=== PATIENT | male | born 1960 | race Caucasian/White ===

== ENCOUNTER 2016-07-03 18:32 | Emergency (ER) | payer BC, OTHER ==
[2016-07-03] MEDS ORDERED: LIDOCAINE VIS-MYLANTA 30 ML UD PO ONE (18:49)
--- NOTE | 2016-07-03 18:52 | ED.PDOC ---
History of Present Illness - General Source: patient Exam Limitations: no limitations - History of Present Illness Initial Comments: The patient is a 55-year-old male presenting to the emergency room secondary to abdominal pain that started approximately 3 hours prior to arrival. The pain seems to be mostly on the right side when he describes it however he does have some discomfort palpation in the epigastric area as well. No definite rebound or peritoneal signs at this time. He was not straining or doing anything active when the pain started. It started fairly acutely and was actually much stronger than it is now. He did have some severe nausea and was doubled over in pain for a short period of time. It is hurting at a 3 out of 10 currently. He has had a history of kidney stones in the past. No previous abdominal surgeries. Timing/Duration: 1-3 hours Severity: moderate Improving Factors: nothing Worsening Factors: nothing Associated Symptoms: loss of appetite, malaise, nausea/vomiting <Sam Hall - Last Filed: 07/03/16 18:49> <Beatrice Venegas - Last Filed: 07/03/16 20:15> - General Chief Complaint: Abdominal Pain Time Seen by Provider: 07/03/16 18:42 - History of Present Illness Allergies/Adverse Reactions: Allergies NO KNOWN ALLERGY Allergy (Verified 07/03/16 18:46) Review of Systems - Review of Systems Constitutional: States: no symptoms reported EENTM: States: no symptoms reported Respiratory: States: no symptoms reported Cardiology: States: no symptoms reported Gastrointestinal/Abdominal: States: see HPI Genitourinary: States: no symptoms reported Musculoskeletal: States: no symptoms reported, back pain - with the associated abdominal pain Skin: States: no symptoms reported Neurological: States: no symptoms reported All other Systems: No Change from Baseline <Sam Hall - Last Filed: 07/03/16 18:49> Past Medical History (General) - Patient Medical History Hx of COPD: No Hx Cardiac Disorders: No Hx Pacemaker: No Hx Diabetes: No Surgical History: other <Sam Hall - Last Filed: 07/03/16 18:49> Family Medical History - Family History Mother Family History: Unknown <Sam Hall - Last Filed: 07/03/16 18:49> Physical Exam - Physical Exam General Appearance: Alert, Anxious, No apparent distress Eye Exam: bilateral normal Ears, Nose, Throat: normal ENT inspection, normal pharynx Neck: full range of motion, normal inspection Respiratory: lungs clear, normal breath sounds, no respiratory distress, no accessory muscle use Cardiovascular/Chest: normal peripheral pulses, regular rate, rhythm, no edema Peripheral Pulses: radial,right: 2+, radial,left: 2+, dorsalis pedis,right: 2+, dorsalis pedis,left: 2+ Gastrointestinal/Abdominal: other - see history of present illness Rectal Exam: deferred Back Exam: normal inspection, no vertebral tenderness Extremity: normal range of motion, non-tender, normal inspection, no pedal edema , no calf tenderness, normal capillary refill Neurologic: alert, normal mood/affect, oriented x 3 Skin Exam: normal color Comments: Vital Signs - 24 hr 07/03/16 18:40 Temperature 96.6 F L Pulse Rate [ 77 RIGHT BRACHIAL] Respiratory 20 Rate O2 Sat by Pulse 98 Oximetry <Sam Hall - Last Filed: 07/03/16 18:49> Progress - Progress Progress: 07/03/16 20:09 Because Patient has no elevated WBC count and no fever and the x-ray indicates proximal colon distension due to stool, I believe Patient's pain is due to constipation. I have discussed this with Patient and offered to do a CT scan if he prefers to confirm the diagnosis, however Patient declines. I have instructed him to return immediately for any continuation or worsening of pain, fever, or nausea/vomiting and he voices his understanding. I have recommended a stool softener, increased fluids and increased movement. If this does not help, he may get a Fleet's enema OTC to see if that helps. - Results/Orders Results/Orders: 07/03/16 18:40 Temperature 96.6 F L Pulse Rate [ 77 RIGHT BRACHIAL] Respiratory 20 Rate O2 Sat by Pulse 98 Oximetry 07/03/16 19:00 HYDROmorphone HCL INJ [Dilaudid INJ] 1 mg IV ONCE Laboratory Results WBC 9.6 K/mm3 (4.8-10.8) 07/03/16 18:45 RBC 5.60 M/mm3 (4.70-6.10) 07/03/16 18:45 Hgb 16.9 gm/dL (14.0-18.0) 07/03/16 18:45 Hct 48.0 % (42.0-52.0) 07/03/16 18:45 MCV 85.8 fl (80.0-94.0) 07/03/16 18:45 MCH 30.2 pg (27.0-31.0) 07/03/16 18:45 MCHC 35.3 g/dL (33.0-37.0) 07/03/16 18:45 RDW 14.0 % (11.5-14.5) 07/03/16 18:45 Plt Count 172 K/mm3 (130-400) 07/03/16 18:45 MPV 8.3 fl (7.40-10.4) 07/03/16 18:45 Absolute Neuts (auto) 7.30 K/uL (1.8-6.8) H 07/03/16 18:45 Absolute Lymphs (auto) 1.60 K/uL (1.0-3.4) 07/03/16 18:45 Absolute Monos (auto) 0.60 K/uL (0.2-0.8) 07/03/16 18:45 Absolute Eos (auto) 0.10 K/uL (0.0-0.4) 07/03/16 18:45 Absolute Basos (auto) 0.10 K/uL (0.0-0.1) 07/03/16 18:45 Neutrophils % 75.9 % (42.0-78.0) 07/03/16 18:45 Lymphocytes % 16.8 % (20.0-50.0) L 07/03/16 18:45 Monocytes % 5.8 % (2.0-9.0) 07/03/16 18:45 Eosinophils % 0.8 % (1.0-5.0) L 07/03/16 18:45 Basophils % 0.7 % (0.0-2.0) 07/03/16 18:45 PT 10.9 SECONDS (9.4-12.5) 07/03/16 18:45 INR 0.960 07/03/16 18:45 PTT (SP) 30.5 SECONDS (25.1-36.5) 07/03/16 18:45 Sodium 136 mmol/L (135-145) 07/03/16 18:45 Potassium 4.0 mmol/L (3.6-5.0) 07/03/16 18:45 Chloride 102 mmol/L (101-111) 07/03/16 18:45 Carbon Dioxide 28 mmol/L (21-31) 07/03/16 18:45 Anion Gap 10.0 (12-18) L 07/03/16 18:45 BUN 22 mg/dL (7-18) H 07/03/16 18:45 Creatinine 0.77 mg/dL (0.6-1.3) 07/03/16 18:45 BUN/Creatinine Ratio 28.6 (10-20) H 07/03/16 18:45 Random Glucose 99 mg/dL (70-105) 07/03/16 18:45 Serum Osmolality 275.3 mOsm/L (275-295) 07/03/16 18:45 Calcium 9.2 mg/dL (8.4-10.2) 07/03/16 18:45 Total Bilirubin 0.3 mg/dL (0.2-1.0) 07/03/16 18:45 AST 19 IU/L (10-42) 07/03/16 18:45 ALT 19 IU/L (10-60) 07/03/16 18:45 Alkaline Phosphatase 73 IU/L (42-121) 07/03/16 18:45 Creatine Kinase 80 IU/L (38-174) 07/03/16 18:45 CK-MB (CK-2) 2.4 ng/mL (0.0-4.4) 07/03/16 18:45 CK-MB (CK-2) % Not Reportable 07/03/16 18:45 Troponin I < 0.02 ng/mL (0.01-0.05) 07/03/16 18:45 Serum Total Protein 7.3 gm/dL (6.4-8.2) 07/03/16 18:45 Albumin 4.7 g/dl (3.2-5.5) 07/03/16 18:45 Globulin 2.6 gm/dL (2.3-3.5) 07/03/16 18:45 Albumin/Globulin Ratio 1.8 (1.1-1.9) 07/03/16 18:45 Amylase 47 U/L (28-100) 07/03/16 18:45 Urine Color Yellow (Yellow) 07/03/16 18:45 Urine Appearance Clear (Clear) 07/03/16 18:45 Urine pH 5.0 (4.5-7.8) 07/03/16 18:45 Ur Specific [place] 1.020 (1.005-1.030) 07/03/16 18:45 Urine Protein Negative mg/dL 07/03/16 18:45 Urine Glucose (UA) Negative mg/dL (Negative) 07/03/16 18:45 Urine Ketones 15 mg/dL (NEGATIVE) H 07/03/16 18:45 Urine Blood Negative (Negative) 07/03/16 18:45 Urine Nitrite Negative 07/03/16 18:45 Urine Bilirubin Negative (NEGATIVE) 07/03/16 18:45 Urine Urobilinogen 0.2 mg/dL (0.2-1.0) 07/03/16 18:45 Ur Leukocyte Esterase Negative (Negative) 07/03/16 18:45 Urine RBC 0 /hpf 07/03/16 18:45 Urine WBC 0-1 /hpf 07/03/16 18:45 Ur Epithelial Cells 0-1 /hpf 07/03/16 18:45 Amorphous Sediment 1+ 07/03/16 18:45 Urine Bacteria 0 07/03/16 18:45 - EKG/XRAY/CT XRAY: abdomen - Proximal colon distended with stool. No obstruction. <Beatrice Venegas - Last Filed: 07/03/16 20:15> Departure <Sam Hall - Last Filed: 07/03/16 18:49> - Departure ICD-10 Supporting Text: Abd. pain right-sided, both upper and lower. Time of Disposition: 20:13 Diet: resume usual diet <Beatrice Venegas - Last Filed: 07/03/16 20:15> - Departure Clinical Impression: Abdominal pain Qualifiers: Abdominal location: unspecified location Qualifier Code: (R10.9) Unspecified abdominal pain Constipation Qualifiers: Constipation type: unspecified constipation type Qualifier Code: (K59.00) Constipation, unspecified Disposition: Discharge to Home or Self Care Condition: Fair Departure Forms: ED Discharge - Pt. Copy, Patient Portal Self Enrollment Instructions: DI for Abdominal Pain-Adult, Constipation, DI for Constipation Additional Instructions: May get stool softener or Fleet's enema over the counter if constipation does not resolve. Follow up in ED immediately for any continued or increasing pain, fever or nausea/vomiting.
[2016-07-03] MEDS ORDERED: HYDROmorphone HCL INJ 2 MG/ML VIAL IV SCH (19:00)
--- NOTE | 2016-07-03 19:17 | RAD ---
EXAM DESCRIPTION: Abdomen Series CLINICAL HISTORY: 55 years Male ,abd pain COMPARISON: None. TECHNIQUE: Frontal view chest x-ray and two views of the abdomen. FINDINGS: The cardiomediastinal silhouette appears unremarkable. No consolidating infiltrates or pleural effusions. Surgical screw partially visualized in the region of the left shoulder. No free air is identified beneath the hemidiaphragms. No dilated loops of bowel to suggest obstruction. The proximal colon appears distended with stool. There are phleboliths in the pelvis. IMPRESSION: The proximal colon appears distended with stool which could be from constipation. No dilated loops of bowel to suggest obstruction. Electronically signed by: Oumar Richards MD 07/03/2016 7:16 PM CDT
[2016-07-03 20:19] VITALS: BP 118/62; TEMP 97.4; O2SAT 96
== END 2016-07-03 20:28 | disposition home or self-care (01) ==
LOC: ER 18:32
DX: K59.00 Constipation, unspecified (principal); Z87.442 Personal history of urinary calculi
CPT/HCPCS: 36415; 74020; 80053; 81001; 82150; 82550; 82553; 84484; 85025; 85610; 85730; J1170

== ENCOUNTER 2016-08-21 13:39 | Emergency (ER) | payer OTHER ==
[2016-08-21] MEDS ORDERED: LIDOCAINE VIS-MYLANTA 30 ML UD PO ONE (13:55)
--- NOTE | 2016-08-21 14:02 | ED.PDOC ---
History of Present Illness - General Chief Complaint: Abdominal Pain Stated Complaint: abdominal pain Time Seen by Provider: 08/21/16 13:54 Source: patient Exam Limitations: no limitations - History of Present Illness Initial Comments: he patient is a 55-year-old male presenting with epigastric and right upper quadrant discomfort starting approximately one hour prior to arrival. He ate lunch and then the pain started shortly thereafter. No vomiting. Mild nausea. He has had 2 bowel movements today. No fevers. No pain prior. He did have one similar episode approximately 2 months ago. He was treated for constipation at that time. Timing/Duration: 1 hour Severity: moderate Improving Factors: nothing Worsening Factors: nothing Associated Symptoms: malaise, nausea/vomiting Allergies/Adverse Reactions: Allergies NO KNOWN ALLERGY Allergy (Verified 07/03/16 18:46) Review of Systems - Review of Systems Constitutional: States: no symptoms reported EENTM: States: no symptoms reported Respiratory: States: no symptoms reported Cardiology: States: no symptoms reported Gastrointestinal/Abdominal: States: see HPI Genitourinary: States: no symptoms reported Musculoskeletal: States: no symptoms reported Skin: States: no symptoms reported Neurological: States: no symptoms reported Endocrine: States: no symptoms reported All other Systems: No Change from Baseline Past Medical History (General) - Patient Medical History Hx of COPD: No Hx Cardiac Disorders: No Hx Pacemaker: No Hx Diabetes: No Family Medical History - Family History Mother Family History: Unknown Physical Exam - Physical Exam General Appearance: Alert, No apparent distress Eye Exam: bilateral normal Ears, Nose, Throat: hearing grossly normal, normal ENT inspection, normal pharynx Neck: full range of motion, supple, normal inspection Respiratory: chest non-tender, lungs clear, normal breath sounds, no respiratory distress, no accessory muscle use Cardiovascular/Chest: normal peripheral pulses, regular rate, rhythm, no edema Peripheral Pulses: radial,right: 2+, radial,left: 2+, dorsalis pedis,right: 2+, dorsalis pedis,left: 2+ Gastrointestinal/Abdominal: soft, other - epigastric and right upper quadrant discomfort palpation. No definite palpable masses. Rectal Exam: deferred Back Exam: normal inspection, no CVA tenderness, no vertebral tenderness Extremity: normal range of motion, non-tender, normal inspection, no pedal edema Neurologic: alert, normal mood/affect, oriented x 3 Skin Exam: normal color Progress - Progress Progress: 08/21/16 14:54 the patient is a 55-year-old male presenting with recurrent epigastric to right upper quadrant abdominal pain approximately an hour after eating lunch today. The pain was helped significantly with a GI cocktail. The most likely diagnosis here is gastritis and we do recommend the patient take one Pepcid daily for at least the next month and avoid spicy foods, hot foods, large meals, nicotine and caffeine for the next couple of weeks. He should also maintain a diet diary and write down everything he had for the last 6 or 8 hours that may have caused some stomach cramping. It is possible his symptoms may be from some cramping due to constipation and he should take 1 dose of milk of magnesia when he gets home. There is also the possibility that he may be having some mild biliary colic. If he fails to respond to treatment for gastritis then it may be worth this time to have that evaluated. He should follow up with his primary care doctor for further evaluation towards the end of the week. ER warnings were given for any worsening. - Results/Orders Results/Orders: acute abdominal series is nonspecific, but there is some mildconstipation the proximal colon. Departure - Departure Clinical Impression: Gastritis Disposition: Discharge to Home or Self Care Condition: Fair Departure Forms: ED Discharge - Pt. Copy, Patient Portal Self Enrollment Instructions: DI for Abdominal Pain-Adult Diet: bland diet Activity: increase activity as tolerated Additional Instructions: the patient is a 55-year-old male presenting with recurrent epigastric to right upper quadrant abdominal pain approximately an hour after eating lunch today. The pain was helped significantly with a GI cocktail. The most likely diagnosis here is gastritis and we do recommend the patient take one Pepcid daily for at least the next month and avoid spicy foods, hot foods, large meals, nicotine and caffeine for the next couple of weeks. He should also maintain a diet diary and write down everything he had for the last 6 or 8 hours that may have caused some stomach cramping. It is possible his symptoms may be from some cramping due to constipation and he should take 1 dose of milk of magnesia when he gets home. There is also the possibility that he may be having some mild biliary colic. If he fails to respond to treatment for gastritis then it may be worth this time to have that evaluated. He should follow up with his primary care doctor for further evaluation towards the end of the week. ER warnings were given for any worsening.
[2016-08-21 14:06] VITALS: TEMP 97
[2016-08-21] MEDS ORDERED: ONDANSETRON ODT 8 MG TAB SL SCH (14:30)
--- NOTE | 2016-08-21 14:31 | RAD ---
EXAM DESCRIPTION: Abdomen Series CLINICAL HISTORY: ruq pain , acute COMPARISON: July 03, 2016 FINDINGS: AP supine and upright views of the abdomen show a nonspecific, nonobstructive bowel gas pattern with no evidence for free intraperitoneal air. Surgical clips from cholecystectomy are seen. No air-filled dilated loops of small bowel are seen. No significant air-fluid levels are identified. No obvious organomegaly is seen. No abnormal calcifications are seen in the expected location of the renal collecting systems. Single view of the chest shows cardiac silhouette and pulmonary vasculature to be within normal limits. Lungs are normally aerated and clear. Postsurgical changes to the left shoulder are again noted. IMPRESSION: Nonspecific abdominal series Electronically signed by: Mahesh Ochoa MD 08/21/2016 2:31 PM CDT
[2016-08-21 14:39] VITALS: BP 118/71; O2SAT 97
== END 2016-08-21 15:12 | disposition home or self-care (01) ==
LOC: ER 13:39
DX: K29.70 Gastritis, unspecified, without bleeding (principal)